=== PATIENT | female | born 1955 ===

== ENCOUNTER 2022-08-24 08:58 | Inpatient (IN) | payer OTHER ==
[~2022-08-24] VITALS: Ht 160 cm; Wt 48.1 kg
[2022-08-24] MEDS ORDERED: SYNTHROID88 MCG PO (14:12)
[2022-08-24] MEDS ORDERED: FUSION PLUS CA1 EACH PO (14:12)
[2022-08-24] MEDS ORDERED: D3 + K2 DOTS 11 EACH PO (14:12)
[2022-08-24] MEDS ORDERED: CALTRATE 600+D1 EAC1 PO (14:12)
[2022-08-24] MEDS ORDERED: NEURIN PO (14:14)
[2022-08-26] MEDS ORDERED: GABAPENTIN300 M2 (07:54)
[2022-08-26] MEDS ORDERED: DULOXETINE HCL20 MG (07:54)
[2022-08-26] MEDS ORDERED: HYDROXYCHLOROQ200 MG (07:54)
[2022-08-26] MEDS ORDERED: ABANEU-SL TABL1 EACH (07:54)
[2022-08-26] MEDS ORDERED: ATENOLOL25 MG (07:54)
[2022-08-26] MEDS ORDERED: FAMOTIDINE40 MG (07:54)
== END 2022-08-29 13:00 | disposition home or self-care (01) | DRG 331 ==
LOC: SURH 10:30 → O/R 08-26 05:20 → SURH 08-26 13:44
PROVIDERS: ADMIT Colon & Rectal Surgery; ATTEND Colon & Rectal Surgery
PROC: 07BB4ZZ Excision of Mesenteric Lymphatic, Percutaneous Endoscopic Approach (ICD-10-PCS; 2022-08-26)
PROC: 0DBV4ZZ Excision of Mesentery, Percutaneous Endoscopic Approach (ICD-10-PCS; 2022-08-26)
PROC: 0DTG4ZZ Resection of Left Large Intestine, Percutaneous Endoscopic Approach (ICD-10-PCS; principal; 2022-08-26 12:45)
DX: C18.6 Malignant neoplasm of descending colon (principal); Z20.822 Contact with and (suspected) exposure to COVID-19